=== PATIENT | male | born 1955 | race Two or more races ===

== ENCOUNTER 2021-10-21 10:52 | Inpatient (IN) | payer MEDICAID, OTHER ==
[~2021-10-21] VITALS: Ht 170.2 cm; Wt 73.1 kg
[2021-10-21] MEDS ORDERED: ASPirin 81 mg TAB PO ONE (11:30)
[2021-10-21 12:04] LABS: Basophils # (auto) 0.1 10 ^3/uL (0-0.2); Basophils % (auto) 0.8 % (0.0-2.0); Eosinophils # (auto) 0.1 10 ^3/uL (0-0.8); Eosinophils % (auto) 1.7 % (0.0-7.0); Hematocrit 45.2 % (41.0-53.0); Lymphocytes # (auto) 1.8 10 ^3/uL (0.4-5.4); Lymphocytes % (auto) 25.2 % (10.0-50.0); Mean Corpuscular Hemoglobin 32.1 pg (28.0-32.0); Mean Corpuscular Hgb Conc. 33.1 g/dL (32.0-36.0); Monocytes # (auto) 0.8 10 ^3/uL (0-1.3); Monocytes % (auto) 10.9 % (0.0-12.0); Neutrophils # (auto) 4.5 10 ^3/uL (1.6-8.6); Neutrophils % (auto) 61.4 % (37.0-80.0); Red Blood Cells 4.66 10^6/uL (4.5-5.90); Red Cell Distribution Width 13.2 % (11.8-14.3); White Blood Cell 7.2 10^3/uL (4.4-10.8)
[2021-10-21 12:35] LABS: Albumin 3.3 g/dL (3.4-5.0); Calcium 8.5 mg/dL (8.5-10.1); Magnesium 2.8 mg/dL (1.6-2.6)
[2021-10-21 12:43] LABS: Bilirubin, Total 0.6 mg/dL (0.2-1.0); Total Protein 6.6 g/dL (6.4-8.2)
[2021-10-21] MEDS ORDERED: ENOXAPARIN SOD 100 MG/1 ML SYRINGE SC ONE (13:15)
[2021-10-21] MEDS ORDERED: ONDANSETRON HCL 4 MG/2 ML VIAL IV ONE (13:15)
[2021-10-21] MEDS ORDERED: MORPHINE SULFATE 4 MG/ML SYR/VIAL IV ONE (13:15)
[2021-10-21 14:04] LABS: BUN/Creatinine Ratio 20.4
[2021-10-21] MEDS ORDERED: NITROGLYCERIN 0.4 MG SL TAB SL PRN (15:45)
[2021-10-21] MEDS ORDERED: MORPHINE SULFATE INJECTION 2 MG/ML SYRG IV PRN ×2 (15:45→19:45)
[2021-10-21] MEDS ORDERED: hydrALAZINE HCL 20 MG/ML VL IV PRN (19:45)
[2021-10-21] MEDS ORDERED: ATORVASTATIN 20 MG TAB PO ONE (19:45)
[2021-10-21] MEDS ORDERED: LORazepam 0.5 MG TAB PO PRN (19:45)
[2021-10-21] MEDS ORDERED: HYDROcodone-ACET 5/325MG TAB PO PRN ×2 (19:45)
[2021-10-21] MEDS ORDERED: METOPROLOL SUCCINATE XL 50 MG TAB PO ONE (19:45)
[2021-10-21] MEDS ORDERED: LACTULOSE 20Gm/30ML SOLN PO PRN (19:45)
[2021-10-21] MEDS ORDERED: HYDROcodone-ACET 5/325MG TAB PO ONE (19:45)
[2021-10-21] MEDS ORDERED: DOCUSATE SOD 100 MG CAP PO PRN (19:45)
[2021-10-21] MEDS ORDERED: ONDANSETRON HCL 4 MG/2 ML VIAL IV PRN (19:45)
[2021-10-21] MEDS ORDERED: IPRATROPIUM BROM 0.5 MG/2.5ML INH SOL NEB ONE (19:45)
[2021-10-21] MEDS: SODIUM CHLORIDE 0.9% 1,000 ML IV SCH ×2 (21:30→22:31)
[2021-10-21] MEDS: ATORVASTATIN 20 MG TAB PO SCH (21:32)
[2021-10-21] MEDS: PANTOPRAZOLE 40 MG/10 ML VIAL INJ IV SCH ×2 (21:32→22:31)
[2021-10-21] MEDS: ENOXAPARIN SOD 80 MG/0.8ML SYRINGE SC SCH (21:32)
[2021-10-21 22:41] LABS: Partial Thromboplastin Time 31.4 sec (23.6-33.0)
[2021-10-21 22:46] LABS: Magnesium 2.2 mg/dL (1.6-2.6); Phosphorus 3.6 mg/dL (2.5-4.90)
[2021-10-22] MEDS ORDERED: IPRATROPIUM BROM 0.5 MG/2.5ML INH SOL NEB PRN
[2021-10-22] MEDS ORDERED: IPRATROPIUM BROM 0.5 MG/2.5ML INH SOL NEB SCH
[2021-10-22 06:07] LABS: Basophils # (auto) 0.1 10 ^3/uL (0-0.2); Eosinophils # (auto) 0.1 10 ^3/uL (0-0.8); Hematocrit 47.8 % (41.0-53.0); Hemoglobin 15.5 g/dL (13.5-17.5); Lymphocytes # (auto) 2.2 10 ^3/uL (0.4-5.4); Lymphocytes % (auto) 33.7 % (10.0-50.0); Mean Corpuscular Hemoglobin 31.6 pg (28.0-32.0); Mean Corpuscular Hgb Conc. 32.5 g/dL (32.0-36.0); Mean Corpuscular Volume 97.2 fL (80.0-100.0); Monocytes # (auto) 0.6 10 ^3/uL (0-1.3); Monocytes % (auto) 9.2 % (0.0-12.0); Neutrophils # (auto) 3.6 10 ^3/uL (1.6-8.6); Neutrophils % (auto) 54.1 % (37.0-80.0); Nucleated Red Blood Cells % 0.1 %; Red Blood Cells 4.92 10^6/uL (4.5-5.90); Red Cell Distribution Width 13.1 % (11.8-14.3); White Blood Cell 6.7 10^3/uL (4.4-10.8)
[2021-10-22 06:27] LABS: INR 1.01 (0.9-1.15); Partial Thromboplastin Time 35.3 sec (23.6-33.0)
[2021-10-22 06:35] LABS: Albumin 3.2 g/dL (3.4-5.0); Magnesium 2.4 mg/dL (1.6-2.6); Potassium 3.9 mmol/L (3.5-5.1)
[2021-10-22 06:47] LABS: BUN/Creatinine Ratio 20.4; Bilirubin, Total 0.9 mg/dL (0.2-1.0); CRP High Sensitivity 0.16 mg/dL (< 0.3); Total Protein 6.6 g/dL (6.4-8.2); Uric Acid 5.8 mg/dL (3.5-7.2)
[2021-10-22 09:00] VITALS: BP 118/56
[2021-10-22] MEDS: ASPirin 81 mg TAB PO SCH (09:01)
[2021-10-22] MEDS: METOPROLOL SUCCINATE XL 50 MG TAB PO SCH (09:02)
[2021-10-22] MEDS: ENOXAPARIN SOD 80 MG/0.8ML SYRINGE SC SCH ×2 (09:02→22:44)
[2021-10-22] MEDS ORDERED: CLOPIDOGREL 300 MG TAB PO ONE (12:45)
[2021-10-22 13:05] VITALS: BP 133/68
[2021-10-22 16:45] VITALS: BP 129/72
[2021-10-22] MEDS: TAMSULOSIN HYDROCHLORIDE 0.4 MG CAP PO SCH (17:28)
[2021-10-22 22:00] VITALS: BP 146/74
[2021-10-22] MEDS: ATORVASTATIN 20 MG TAB PO SCH (22:44)
[2021-10-22] MEDS: PANTOPRAZOLE 40 MG/10 ML VIAL INJ IV SCH (22:45)
[2021-10-23] VITALS (9 sets, daily range): BP systolic 116–145; BP diastolic 61–76
[2021-10-23] MEDS ORDERED: IOHEXOL 350 MG/ML 100ML IJ ONE (08:46)
[2021-10-23] MEDS ORDERED: LIDOCAINE 2%HCL (LOCAL ANESTH.) INJ 20ML MDV ONE (08:46)
[2021-10-23] MEDS ORDERED: fentaNYL CITRATE 100 MCG/2 ML VL ONE (08:48)
[2021-10-23] MEDS ORDERED: SODIUM CHL 0.9% 50 ML ONE (08:48)
[2021-10-23] MEDS ORDERED: ANGIOMAX 250 MG VIAL IV ONE (08:48)
[2021-10-23] MEDS ORDERED: MIDAZOLAM HCL 2MG/2ML 2ml VIAL (1mg/ml) ONE (08:48)
[2021-10-23] MEDS: PANTOPRAZOLE 40 MG/10 ML VIAL INJ IV SCH ×2 (10:00→21:26)
[2021-10-23] MEDS: METOPROLOL SUCCINATE XL 50 MG TAB PO SCH (10:00)
[2021-10-23] MEDS: ENOXAPARIN SOD 80 MG/0.8ML SYRINGE SC SCH (10:00)
[2021-10-23] MEDS ORDERED: ATROPINE SULF 1 MG/10ml SYR ONE (10:02)
[2021-10-23] MEDS ORDERED: CLOPIDOGREL 300 MG TAB ONE (10:16)
[2021-10-23] MEDS: ASPirin 81 mg TAB PO SCH (10:35)
[2021-10-23] MEDS: TAMSULOSIN HYDROCHLORIDE 0.4 MG CAP PO SCH (17:27)
[2021-10-23] MEDS: ATORVASTATIN 20 MG TAB PO SCH (21:26)
[2021-10-24 05:18] VITALS: BP 115/66
[2021-10-24 09:00] VITALS: BP 127/68
[2021-10-24] MEDS: PANTOPRAZOLE 40 MG/10 ML VIAL INJ IV SCH (09:24)
[2021-10-24] MEDS: ASPirin 81 mg TAB PO SCH (09:24)
[2021-10-24] MEDS: METOPROLOL SUCCINATE XL 50 MG TAB PO SCH (09:27)
[2021-10-24] MEDS ORDERED: CLOPIDOGREL BISULFATE 75 MG TAB PO SCH (10:00)
[2021-10-24 12:32] VITALS: BP 130/75
[2021-10-24] MEDS ORDERED: ASPI1TAB20 PO (13:20)
[2021-10-24] MEDS ORDERED: CLOP75TA28 PO (13:20)
[2021-10-24] MEDS ORDERED: METO25TA93 PO (13:21)
[2021-10-24] MEDS ORDERED: ATOR40TA52 PO (13:21)
[2021-10-24] MEDS ORDERED: LISI2.5T47 PO (13:22)
[2021-10-24 14:46] VITALS: BP_DIAS 66
== END 2021-10-24 17:12 | disposition home or self-care (01) | DRG 246 ==
LOC: ER 10:52 → TELE 15:33 → TELE-WESTW 10-22 05:13
PROVIDERS: ADMIT Hospitalist; ATTEND Internal Medicine Nephrology
PROC: 027135Z Dilation of Coronary Artery, Two Arteries with Two Drug-eluting Intraluminal Devices, Percutaneous Approach (ICD-10-PCS; principal; 2021-10-23)
PROC: 4A023N7 Measurement of Cardiac Sampling and Pressure, Left Heart, Percutaneous Approach (ICD-10-PCS; 2021-10-23)
PROC: B211YZZ Fluoroscopy of Multiple Coronary Arteries using Other Contrast (ICD-10-PCS; 2021-10-23)
PROC: B215YZZ Fluoroscopy of Left Heart using Other Contrast (ICD-10-PCS; 2021-10-23)
DX: I21.4 Non-ST elevation (NSTEMI) myocardial infarction (principal); I50.33 Acute on chronic diastolic (congestive) heart failure; I16.9 Hypertensive crisis, unspecified; E66.01 Morbid (severe) obesity due to excess calories; E78.5 Hyperlipidemia, unspecified; F17.210 Nicotine dependence, cigarettes, uncomplicated; Z20.822 Contact with and (suspected) exposure to COVID-19; I11.0 Hypertensive heart disease with heart failure; R00.1 Bradycardia, unspecified; J44.9 Chronic obstructive pulmonary disease, unspecified; Z68.25 Body mass index [BMI] 25.0-25.9, adult
CPT/HCPCS: 36415; 71046; 80053; 80061; 82550; 82728; 83036; 83735; 83880; 84100; 84443; 84484; 84550; 85025; 85379; 85610; 85652; 85730; 86141; 87040; 87426; 92928; 93005; 93306; 93458; 96361; 96372; 96374; 96375; 99152; 99153; C1874; C1887; C9113; G0378; J2250; J2405

== ENCOUNTER 2021-11-30 11:31 | Emergency (ER) | payer SELFPAY ==
[~2021-11-30] VITALS: Ht 170.2 cm; Wt 70.3 kg
[~2021-11-30 11:31] MED LIST: ASPI1TAB20 PO; ATOR40TA52 PO; CLOP75TA28 PO
[2021-11-30] MEDS ORDERED: LISI2.5T47 PO (15:36)
[2021-11-30] MEDS ORDERED: METO25TA93 PO (15:36)
[2021-11-30 15:58] VITALS: BP 149/87
== END 2021-11-30 16:03 | disposition home or self-care (01) ==
LOC: ER 11:31
DX: I10 Essential (primary) hypertension (principal); Z76.0 Encounter for issue of repeat prescription; F17.210 Nicotine dependence, cigarettes, uncomplicated